=== PATIENT | female | born 1965 | race Caucasian/White ===

== ENCOUNTER 2017-03-06 19:20 | Emergency (ER) | payer BC ==
[2017-03-06 19:37] VITALS: BP 156/68
--- NOTE | 2017-03-06 20:05 | EDM.PDOC ---
ED HPI Trauma - General Chief Complaint: Upper Extremity Injury/Pain Stated Complaint: left wrist pain Time Seen by Provider: 03/06/17 19:24 Source: Reports: Patient, RN, RN notes reviewed History Limitations: Reports: No limitations - History of Present Illness INITIAL COMMENTS - FREE TEXT/NARRATIVE: Patient presents to the ED at [facility] complaining of left wrist pain. Patient states she was clearing tree branches when one of the branches broke, causing her to fall. Patient states she fell back, landing on her left wrist. Denies any hand injury or trauma. Patient denies any numbness, tingling, or paresthesia. Symptom Onset Date: 03/06/17 Symptom Onset Time: 19:10 Occurred When: just prior to arrival Occurred Where: home Method of Injury: fall Severity: moderate Pain/Injury Location: Reports: upper extremity, left Consciousness: Reports: no loss of consciousness Associated Symptoms: Reports: no other symptoms Allergies/ADRs: Allergies No Known Allergies Allergy (Verified 03/06/17 19:37) Home Medications: Ambulatory Orders . [Unable to Verify Home Med List] 10/29/15 [Confirmed 10/29/15] Past Medical History Cardiovascular History: Reports: Hypertension - Past Surgical History GI Surgical History: Reports: Cholecystectomy Female Surgical History: Reports: Tubal ligation Social & Family History - Tobacco Use Smoking Status *Q: Current Every Day Smoker Years of Tobacco use: 36 Packs/Tins Daily: 0.2 - Recreational Drug Use Recreational Drug Use: No Review of Systems - Review of Systems Review Of Systems: See Below Constitutional: Denies: chills, fever, weakness Respiratory: Denies: Shortness of Breath, Cough Cardiovascular: Denies: chest pain, palpitations Musculoskeletal: Reports: other (left wrist pain) Skin: Reports: bruising (dorsum of left hand) Neurological: Denies: Numbness, Paresthesia, Tingling Trauma Exam - Physical Exam Exam: See Below Exam Limited By: No limitations General Appearance: Reports: alert Head: Reports: atraumatic, normocephalic Respiratory Exam: Reports: no respiratory distress, lungs clear, normal breath sounds Cardiovascular: Reports: regular rate, rhythm Extremities: Reports: bony-point tenderness, pain with movement, tenderness Neurologic: Reports: alert, oriented x 3 Skin: Reports: Normal color, Warm/dry - [place] Coma Score Best Eye Response (Abdi): (4) open spontaneously Best Verbal Response (Abdi): (5) oriented Best Motor Response ([place]): (6) obeys commands [place] Total: 15 Course - Vital Signs Last Recorded V/S: Last Vital Signs Temp 36.7 C 03/06/17 19:31 Pulse 89 03/06/17 19:31 Resp 16 03/06/17 19:31 BP 156/68 H 03/06/17 19:31 Pulse Ox 97 03/06/17 19:31 - Orders/Labs/Meds Orders: Active Orders 24 hr Category Date Time Status Wrist Comp Min 3V Lt [CR] Stat Exams 03/06/17 19:51 Taken - Radiology Interpretation Free Text/Narrative:: There is no fracture or dislocation; There are extensive degenerative changes of the 1st carometacarpal joint perhaps from previous injury. Departure - Departure Time of Disposition: 20:46 Disposition: Home, Self-Care 01 Condition: good Clinical Impression: Left wrist sprain Qualifiers: Encounter type: initial encounter Qualified Code(s): S63.502A - Unspecified sprain of left wrist, initial encounter Instructions: Wrist Sprain Referrals: Celia Wilson [facility] [Primary Care Provider] - Forms: ED Department Discharge Additional Instructions: 1. Stay well hydrated and rest 2. Rest, elevate, and ice several times a day 3. Alternate Tylenol/Advil as needed for pain 4. Wear wrist splint at all times, especially during sleep 5. See your primary as symptoms warrant - Problem List Review Problem List Initiated/Reviewed/Updated: Yes - My Orders Last 24 Hours: My Active Orders 03/06/17 19:51 Wrist Comp Min 3V Lt [CR] Stat - Assessment/Plan Last 24 Hours: My Active Orders 03/06/17 19:51 Wrist Comp Min 3V Lt [CR] Stat
== END 2017-03-06 21:15 | disposition home or self-care (01) ==
LOC: VM.ED 19:20
DX: S63.502A Unspecified sprain of left wrist, initial encounter (principal); I10 Essential (primary) hypertension; F17.210 Nicotine dependence, cigarettes, uncomplicated; W19.XXXA Unspecified fall, initial encounter; Y92.009 Unspecified place in unspecified non-institutional (private) residence as the place of occurrence of the external cause
CPT/HCPCS: 73110-LT; 99283